=== PATIENT | male | born 1970 | race Caucasian/White ===

== ENCOUNTER 2017-05-07 10:24 | Emergency (ER) | payer OTHER, MEDICAID ==
[~2017-05-07] VITALS: Ht 182.9 cm; Wt 179.2 kg
[2017-05-07 10:35] VITALS: BP_SYST 160
[2017-05-07] MEDS ORDERED: KETOROLAC TROMETHAMINE 60 MG/2 ML VIAL IM ONE (12:15)
[2017-05-07] MEDS ORDERED: LOSARTAN POTASSIUM 50 MG TABLET (COZAAR) PO ONE (13:00)
[2017-05-07] MEDS ORDERED: amLODIPine BESYLATE 5 MG TABLET PO ONE (13:00)
[2017-05-07 13:43] VITALS: BP_SYST 172
== END 2017-05-07 13:43 | disposition home or self-care (01) ==
LOC: SED 10:24
DX: M54.9 Dorsalgia, unspecified (principal); I10 Essential (primary) hypertension; E66.01 Morbid (severe) obesity due to excess calories; Z68.43 Body mass index [BMI] 50.0-59.9, adult
CPT/HCPCS: 72100; 96372; 99284; J1885

== ENCOUNTER 2017-08-16 12:50 | Emergency (ER) | payer OTHER, MEDICAID ==
[~2017-08-16] VITALS: Ht 182.9 cm; Wt 158.8 kg
[2017-08-16 13:09] VITALS: BP_SYST 200
[2017-08-16] MEDS ORDERED: KETOROLAC TROMETHAMINE 60 MG/2 ML VIAL IM ONE (13:30)
[2017-08-16] MEDS ORDERED: cloNIDine HCL 0.1 MG TABLET PO ONE (13:30)
[2017-08-16 13:54] LABS: BASOPHILS # (AUTO) 0.1 K/uL (0.0-0.2); BASOPHILS % (AUTO) 1.2 % (0.0-2.0); EOSINOPHILS # (AUTO) 0.3 K/uL (0.0-0.4); EOSINOPHILS % (AUTO) 3.6 % (0.0-4.0); HEMATOCRIT 43.4 % (36-54); HEMOGLOBIN 14.2 g/dL (14.0-18.0); LYMPHOCYTES % (AUTO) 25.7 % (20.5-51.5); MEAN CORPUSCULAR HEMOGLOBIN 30 pg (27-31); MEAN CORPUSCULAR HGB CONC 33 % (32-36); MEAN CORPUSCULAR VOLUME 91 fL (79.0-98.0); MONOCYTES # (AUTO) 0.4 K/uL (0.0-1.0); MONOCYTES % (AUTO) 5.1 % (1.7-9.3); NEUTROPHILS # (AUTO) 5.1 K/uL (1.8-7.7); NEUTROPHILS % (AUTO) 64.4 % (40.0-70.0); PLATELET COUNT (AUTO) 232 K/uL (130-430); RED BLOOD CELL COUNT(AUTO) 4.78 MIL/uL (4.2-6.2); WHITE BLOOD COUNT (AUTO) 7.9 K/uL (4.8-10.8)
[2017-08-16 14:07] LABS: POTASSIUM 4.2 mmol/L (3.5-5.1)
[2017-08-16 14:11] LABS: ALBUMIN 3.4 g/dL (3.4-4.8); TOTAL BILIRUBIN 0.4 mg/dL (0.0-1.0)
[2017-08-16 14:30] LABS: INR 0.9 (0.80-1.20); PROTHROMBIN TIME 10.3 SECS (9.5-12.5)
[2017-08-16 15:30] VITALS: BP_SYST 155
== END 2017-08-16 15:30 | disposition home or self-care (01) ==
LOC: SED 12:50
DX: M71.22 Synovial cyst of popliteal space [Baker], left knee (principal); M79.662 Pain in left lower leg; I10 Essential (primary) hypertension; E66.01 Morbid (severe) obesity due to excess calories; Z68.42 Body mass index [BMI] 45.0-49.9, adult; Z98.84 Bariatric surgery status
CPT/HCPCS: 36415; 71010; 73564; 80053; 85025; 85379; 85610; 85730; 93005; 93971; 96372; 99285; J1885

== ENCOUNTER 2019-04-14 12:39 | Emergency (ER) | payer OTHER, MEDICAID ==
[~2019-04-14] VITALS: Ht 182.9 cm; Wt 174.2 kg
[2019-04-14 12:47] VITALS: BP_SYST 200
[2019-04-14] MEDS ORDERED: cloNIDine HCL 0.1 MG TABLET PO ONE (13:45)
[2019-04-14] MEDS ORDERED: ENALAPRILAT DIHYDRATE 1.25 MG/ML VIAL IVP ONE (14:45)
[2019-04-14 16:10] VITALS: BP_SYST 166
[2019-04-14] MEDS ORDERED: NORMAL SALINE 5 ML DISP.SYRIN IVF SCH (22:00)
== END 2019-04-14 16:15 | disposition home or self-care (01) ==
LOC: SED 12:39
DX: S80.11XA Contusion of right lower leg, initial encounter (principal); I10 Essential (primary) hypertension; E66.01 Morbid (severe) obesity due to excess calories; Z68.43 Body mass index [BMI] 50.0-59.9, adult; W01.0XXA Fall on same level from slipping, tripping and stumbling without subsequent striking against object, initial encounter; Y93.89 Activity, other specified; Y92.89 Other specified places as the place of occurrence of the external cause; Y99.8 Other external cause status
CPT/HCPCS: 73590-TC; 96372; 99283

== ENCOUNTER 2020-11-13 10:29 | Emergency (ER) | payer OTHER, MEDICAID ==
[~2020-11-13] VITALS: Ht 190.5 cm; Wt 174.6 kg
[2020-11-13 11:25] VITALS: BP_SYST 146
--- NOTE | 2020-11-13 11:27 | NUR ---
PLACED IN TENT
--- NOTE | 2020-11-13 14:05 | NUR ---
DR ENGLISH IN TO ASSESS
--- NOTE | 2020-11-13 14:30 | NUR ---
CALM, ALERT, RESP UNLABORED. SKIN WARM AND DRY. CLEAR MENTATION AND SPEECH. DENIES CP/SOB
[2020-11-13 14:44] VITALS: BP_SYST 136
--- NOTE | 2020-11-13 14:45 | NUR ---
Patient given written and verbal discharge instructions and verbalizes understanding. ER MD discussed with patient the results and treatment provided. Patient in stable condition. ID arm band removed. Rx of NORCO given. Patient educated on pain management and to follow up with PMD. Pain Scale . Opportunity for questions provided and answered. Medication side effect fact sheet provided.
== END 2020-11-13 14:44 | disposition home or self-care (01) ==
LOC: SED 10:47
DX: M54.41 Lumbago with sciatica, right side (principal); I10 Essential (primary) hypertension; E66.01 Morbid (severe) obesity due to excess calories
CPT/HCPCS: 99283

== ENCOUNTER 2022-11-04 18:29 | Emergency (ER) | payer OTHER, MEDICAID ==
[~2022-11-04] VITALS: Ht 182.9 cm; Wt 210.9 kg
[2022-11-04 18:58] VITALS: BP_SYST 274
--- NOTE | 2022-11-04 19:01 | NUR ---
UNABLE TO GET BP AFTER MULTIPLE TIMES, DIFFERENT ARMS. DR HOUSE INFORMED.
--- NOTE | 2022-11-04 19:30 | NUR ---
RECEIVED REPORT FROM BURT MEYER
--- NOTE | 2022-11-04 19:54 | NUR ---
JAYDEN HOUSE EXAMINING PT AT BEDSIDE
[2022-11-04] MEDS ORDERED: LORazepam 2 MG/ML VIAL IVP ONE (20:00)
[2022-11-04] MEDS ORDERED: LABETALOL HCL 20 MG/4 ML CARTRIDGE IVP ONE (20:00)
--- NOTE | 2022-11-04 20:30 | NUR ---
# 22 gauge angiocath placed to L AC. Use of asceptic technique. Opsite placed over site. Blood return noted. Blood for lab drawn from site. Flushed with 10 cc of normal saline. No evidence of infiltration noted. Patient tolerated well.
[2022-11-04] MEDS ORDERED: MORPHINE 4 MG INJ. 4 MG/ML VIAL ONE (20:49)
[2022-11-04 20:51] LABS: BASOPHILS # (AUTO) 0.1 K/uL (0.0-0.2); BASOPHILS % (AUTO) 0.9 % (0.0-2.0); EOSINOPHILS # (AUTO) 0.1 K/uL (0.0-0.4); EOSINOPHILS % (AUTO) 1.2 % (0.0-4.0); HEMATOCRIT 43.6 % (36-54); HEMOGLOBIN 14.8 g/dL (14.0-18.0); LYMPHOCYTES # (AUTO) 0.9 K/uL (1.0-5.5); LYMPHOCYTES % (AUTO) 10.7 % (20.5-51.5); MEAN CORPUSCULAR HEMOGLOBIN 31 pg (27-31); MEAN CORPUSCULAR HGB CONC 34 % (32-36); MEAN CORPUSCULAR VOLUME 91 fL (79.0-98.0); MONOCYTES # (AUTO) 0.7 K/uL (0.0-1.0); NEUTROPHILS # (AUTO) 6.7 K/uL (1.8-7.7); NEUTROPHILS % (AUTO) 79.2 % (40.0-70.0); PLATELET COUNT (AUTO) 229 K/uL (130-430); RED BLOOD CELL COUNT(AUTO) 4.78 MIL/uL (4.2-6.2); RED CELL DISTRIBUTION WIDTH 14.5 % (9.0-15.0); WHITE BLOOD COUNT (AUTO) 8.5 K/uL (4.8-10.8)
[2022-11-04] MEDS ORDERED: NITROGLYCERIN 1 INCH (GM) OINT. ONE (20:51)
[2022-11-04 21:06] LABS: ANION GAP 9 (5-15); CALCIUM 8.6 mg/dL (8.4-11.0); CHLORIDE 105 mmol/L (98-107); CREATININE 1.25 mg/dL (0.55-1.30); GLUCOSE 186 mg/dL (70-99); UREA NITROGEN, BLOOD 16 mg/dL (8-21)
[2022-11-04 21:12] LABS: ALANINE AMINOTRANSFERASE 179 U/L (12-78); ALBUMIN 3.3 g/dL (3.4-4.8); ASPARTATE AMINOTRANSFERASE 343 U/L (10-37); TOTAL BILIRUBIN 1.6 mg/dL (0.0-1.0)
[2022-11-04 21:14] LABS: GFR AFRICAN AMERICAN 78 mL/min (>90)
--- NOTE | 2022-11-04 23:14 | NUR ---
Patient taken to CT via gurney accompanied by radiology.
[2022-11-04] MEDS ORDERED: MORPHINE 4 MG INJ. 4 MG/ML VIAL IVP ONE ×2 (23:30→23:45)
[2022-11-04] MEDS ORDERED: NITROGLYCERIN 1 INCH (GM) OINT. TP ONE (23:30)
--- NOTE | 2022-11-04 23:33 | NUR ---
Patient back from CT via gurney accompanied by radiology
[2022-11-05] MEDS ORDERED: LIDOCAINE 1%, 20 ML MDV 20 ML ONE (01:13)
--- NOTE | 2022-11-05 01:15 | NUR ---
I&D Procedure done by Dr HOUSE using sterile technique. Lidocaine 1% used. Wound packed with IODOFORM. Adaptic, 4x4 and amish to wound. amt of bleeding noted. Wound care discussed w/ patient. Pt tolerated procedure well.
[2022-11-05] MEDS ORDERED: CEPH-548 PO (01:42)
[2022-11-05 01:45] VITALS: BP_SYST 172
--- NOTE | 2022-11-05 01:45 | NUR ---
Patient given written and verbal discharge instructions and verbalizes understanding. ER MD discussed with patient the results and treatment provided. Patient in stable condition. ID arm band removed. IV catheter removed intact and dressing applied, no active bleeding. Rx of CEPHALEXIN given. Patient educated on pain management and to follow up with PMD. Pain Scale 0/10. Opportunity for questions provided and answered. Medication side effect fact sheet provided.
== END 2022-11-05 01:45 | disposition home or self-care (01) ==
LOC: SED 18:29
DX: L02.213 Cutaneous abscess of chest wall (principal); R10.84 Generalized abdominal pain; B34.9 Viral infection, unspecified; F41.9 Anxiety disorder, unspecified; I10 Essential (primary) hypertension; Z79.899 Other long term (current) drug therapy
CPT/HCPCS: 99285; 74176; 96374; 10060; 71045; 96375; 80053; 83880; 83690; 85025; 85379; 84484; 36415; 76376; 96376; 93005; 90471; J2060; J2270; J2001

== ENCOUNTER 2022-11-09 06:00 | Inpatient (IN) | payer OTHER, MEDICAID ==
[~2022-11-09] VITALS: Ht 182.9 cm; Wt 221.8 kg
[~2022-11-09 06:00] MED LIST: CEPH-548 PO
[2022-11-09 06:10] VITALS: BP_SYST 186
[2022-11-09] MEDS ORDERED: KETOROLAC TROMETHAMINE 30 MG VIAL IVP ONE (06:45)
[2022-11-09] MEDS ORDERED: ONDANSETRON HCL 4 MG/2 ML VIAL IVP ONE (06:45)
[2022-11-09 06:53] LABS: BASOPHILS # (AUTO) 0.1 K/uL (0.0-0.2); EOSINOPHILS # (AUTO) 0.4 K/uL (0.0-0.4); EOSINOPHILS % (AUTO) 6.3 % (0.0-4.0); HEMATOCRIT 42.9 % (36-54); HEMOGLOBIN 14.6 g/dL (14.0-18.0); MEAN CORPUSCULAR HEMOGLOBIN 31 pg (27-31); MEAN CORPUSCULAR HGB CONC 34 % (32-36); MEAN CORPUSCULAR VOLUME 92 fL (79.0-98.0); MONOCYTES # (AUTO) 0.5 K/uL (0.0-1.0); MONOCYTES % (AUTO) 8.1 % (1.7-9.3); NEUTROPHILS # (AUTO) 3.8 K/uL (1.8-7.7); NEUTROPHILS % (AUTO) 66.6 % (40.0-70.0); PLATELET COUNT (AUTO) 207 K/uL (130-430); RED BLOOD CELL COUNT(AUTO) 4.66 MIL/uL (4.2-6.2); RED CELL DISTRIBUTION WIDTH 15.4 % (9.0-15.0); WHITE BLOOD COUNT (AUTO) 5.7 K/uL (4.8-10.8)
[2022-11-09 06:54] LABS: CALCIUM 9.4 mg/dL (8.4-11.0); CREATININE 1.5 mg/dL (0.55-1.30)
[2022-11-09 07:00] LABS: ALBUMIN 3.2 g/dL (3.4-4.8); TOTAL BILIRUBIN 6.2 mg/dL (0.0-1.0)
[2022-11-09 07:04] LABS: PROTHROMBIN TIME 10.2 SECS (9.5-12.5)
[2022-11-09 08:21] LABS: BILIRUBIN,URINE 3+ (NEGATIVE); BLOOD, URINE NEGATIVE (NEGATIVE); GLUCOSE,URINE NEGATIVE (NEGATIVE); KETONES,URINE TRACE (NEGATIVE); LEUKOCYTE ESTERASE ,URINE NEGATIVE (NEGATIVE); NITRITE, URINE NEGATIVE (NEGATIVE); PROTEIN URINE 1+ (NEGATIVE); UROBILINOGEN,URINE 0.2 (0.2-1.0)
[2022-11-09 08:32] LABS: CLARITY/URINE SLIGHTLY HAZY (CLEAR); COLOR,URINE AMBER (YELLOW)
[2022-11-09 08:36] LABS: BACTERIA,URINE FEW /HPF (None Seen); RBC,URINE 0-3 /HPF (0-3); WBC,URINE 0-3 /HPF (0-3)
[2022-11-09 08:37] LABS: OTHER CASTS, URINE MIXED CELL CASTS 1+ /LPF (None Seen)
[2022-11-09] MEDS ORDERED: ONDA-8 TL (08:56)
[2022-11-09] MEDS ORDERED: TRAM50TA2 PO (08:56)
[2022-11-09] MEDS ORDERED: PRO40 PO (09:29)
[2022-11-09] MEDS ORDERED: CLON0.2T PO (09:29)
[2022-11-09] MEDS ORDERED: HYG25 PO (09:29)
[2022-11-09] MEDS ORDERED: HYDR-4038 PO (09:29)
[2022-11-09] MEDS ORDERED: NOR10 PO (09:29)
[2022-11-09] MEDS ORDERED: CHOLECALCIFEROL (09:29)
[2022-11-09] MEDS ORDERED: LIP40 PO (09:30)
[2022-11-09] MEDS ORDERED: traMADol HCL HCL 50 MG TABLET (ULTRAM) PO PRN (11:00)
[2022-11-09] MEDS ORDERED: ONDANSETRON 4 MG ODT TAB TL PRN (11:00)
[2022-11-09] MEDS: D5/0.45 NS 1,000 ML IV SCH (12:16)
[2022-11-09] MEDS: cephALEXin 500 MG CAPSULE PO SCH ×3 (12:17→20:18)
[2022-11-09 13:45] VITALS: BP_SYST 177
[2022-11-09] MEDS ORDERED: cloNIDine HCL 0.2 MG TABLET PO ONE (14:00)
[2022-11-09] MEDS: hydrALAZINE HCL 25 MG TABLET PO SCH ×2 (16:01→21:22)
[2022-11-09 16:04] VITALS: BP_SYST 181
[2022-11-09 17:54] VITALS: BP_SYST 181
[2022-11-09 19:53] VITALS: BP_SYST 162
[2022-11-09] MEDS: ATORVASTATIN 20 MG TABLET PO SCH (20:18)
[2022-11-09] MEDS: cloNIDine HCL 0.2 MG TABLET PO SCH (20:18)
[2022-11-10] VITALS: BP_SYST 143
[2022-11-10] MEDS: hydrALAZINE HCL 25 MG TABLET PO SCH ×3 (06:11→21:36)
[2022-11-10] MEDS: D5/0.45 NS 1,000 ML IV SCH ×3 (06:11→17:56)
[2022-11-10 07:00] LABS: BASOPHILS # (AUTO) 0.1 K/uL (0.0-0.2); BASOPHILS % (AUTO) 1.2 % (0.0-2.0); EOSINOPHILS # (AUTO) 0.3 K/uL (0.0-0.4); EOSINOPHILS % (AUTO) 5.8 % (0.0-4.0); HEMATOCRIT 41.5 % (36-54); LYMPHOCYTES % (AUTO) 19.6 % (20.5-51.5); MEAN CORPUSCULAR HEMOGLOBIN 31 pg (27-31); MEAN CORPUSCULAR HGB CONC 34 % (32-36); MEAN CORPUSCULAR VOLUME 92 fL (79.0-98.0); MONOCYTES # (AUTO) 0.5 K/uL (0.0-1.0); MONOCYTES % (AUTO) 8.8 % (1.7-9.3); NEUTROPHILS # (AUTO) 3.4 K/uL (1.8-7.7); NEUTROPHILS % (AUTO) 64.6 % (40.0-70.0); PLATELET COUNT (AUTO) 189 K/uL (130-430); RED BLOOD CELL COUNT(AUTO) 4.53 MIL/uL (4.2-6.2); RED CELL DISTRIBUTION WIDTH 15.2 % (9.0-15.0); WHITE BLOOD COUNT (AUTO) 5.2 K/uL (4.8-10.8)
[2022-11-10 07:33] LABS: ALBUMIN 2.9 g/dL (3.4-4.8); CALCIUM 8.8 mg/dL (8.4-11.0); CREATININE 1.33 mg/dL (0.55-1.30); TOTAL BILIRUBIN 6.1 mg/dL (0.0-1.0)
[2022-11-10 08:06] LABS: HEPATITIS A AB, IgM Negative (Negative); HEPATITIS B CORE AB, IgM Negative (Negative); HEPATITIS B SURFACE AG Negative (Negative)
[2022-11-10 09:32] VITALS: BP_SYST 157
[2022-11-10] MEDS: cephALEXin 500 MG CAPSULE PO SCH ×4 (09:35→21:35)
[2022-11-10] MEDS: cloNIDine HCL 0.2 MG TABLET PO SCH ×2 (09:36→21:35)
[2022-11-10] MEDS: PANTOPRAZOLE SODIUM 40 MG TAB PO SCH (09:36)
[2022-11-10] MEDS: amLODIPine BESYLATE 10 MG TABLET PO SCH (09:36)
[2022-11-10 09:56] VITALS: BP_SYST 107
[2022-11-10] MEDS: CHLORTHALIDONE 25 MG TABLET (HYGROTON) PO SCH (10:31)
[2022-11-10] MEDS ORDERED: POTASSIUM CHLORIDE 20 MEQ TAB.PRT.SR PO ONE (11:00)
[2022-11-10 11:07] LABS: ACETAMINOPHEN < 1 ug/mL (1-30)
[2022-11-10 11:16] LABS: TOTAL IRON BIND. CAPACITY 359 ug/dL (250-450)
[2022-11-10 11:58] VITALS: BP_SYST 143
[2022-11-10 16:30] VITALS: BP_SYST 141
[2022-11-10 20:00] VITALS: BP_SYST 147
[2022-11-10] MEDS: ATORVASTATIN 20 MG TABLET PO SCH (21:35)
[2022-11-11] VITALS: BP_SYST 149
[2022-11-11] MEDS: D5/0.45 NS 1,000 ML IV SCH (01:01)
[2022-11-11] MEDS: hydrALAZINE HCL 25 MG TABLET PO SCH (06:35)
[2022-11-11 07:52] VITALS: BP_SYST 145
[2022-11-11] MEDS: cephALEXin 500 MG CAPSULE PO SCH ×2 (08:32→12:10)
[2022-11-11] MEDS: PANTOPRAZOLE SODIUM 40 MG TAB PO SCH (08:32)
[2022-11-11] MEDS: amLODIPine BESYLATE 10 MG TABLET PO SCH (08:33)
[2022-11-11] MEDS: cloNIDine HCL 0.2 MG TABLET PO SCH (08:33)
[2022-11-11] MEDS: CHLORTHALIDONE 25 MG TABLET (HYGROTON) PO SCH (08:33)
[2022-11-11 08:50] LABS: EOSINOPHILS # (AUTO) 0.2 K/uL (0.0-0.4); EOSINOPHILS % (AUTO) 4.6 % (0.0-4.0); HEMATOCRIT 43.6 % (36-54); HEMOGLOBIN 14.6 g/dL (14.0-18.0); LYMPHOCYTES % (AUTO) 18.4 % (20.5-51.5); MEAN CORPUSCULAR HEMOGLOBIN 31 pg (27-31); MEAN CORPUSCULAR HGB CONC 34 % (32-36); MEAN CORPUSCULAR VOLUME 92 fL (79.0-98.0); MONOCYTES # (AUTO) 0.5 K/uL (0.0-1.0); MONOCYTES % (AUTO) 9.2 % (1.7-9.3); PLATELET COUNT (AUTO) 182 K/uL (130-430); RED BLOOD CELL COUNT(AUTO) 4.73 MIL/uL (4.2-6.2); RED CELL DISTRIBUTION WIDTH 15.4 % (9.0-15.0); WHITE BLOOD COUNT (AUTO) 5.3 K/uL (4.8-10.8)
[2022-11-11 09:12] LABS: ALBUMIN 3.1 g/dL (3.4-4.8); BILIRUBIN,DIRECT 6.5 mg/dL (0.0-0.3); CALCIUM 8.9 mg/dL (8.4-11.0); CREATININE 1.3 mg/dL (0.55-1.30)
[2022-11-11 09:27] LABS: BASOPHILS % (AUTO) 0.3 % (0.0-2.0); NEUTROPHILS # (AUTO) 3.6 K/uL (1.8-7.7); NEUTROPHILS % (AUTO) 67.5 % (40.0-70.0)
[2022-11-11 09:30] LABS: PROTHROMBIN TIME 10.1 SECS (9.5-12.5)
[2022-11-11 11:56] VITALS: BP_SYST 148
[2022-11-11 11:57] VITALS: BP_SYST 170
[2022-11-11 12:10] VITALS: BP_SYST 148
[2022-11-11] MEDS ORDERED: NORMAL SALINE 5 ML DISP.SYRIN IVF SCH (14:00)
[2022-11-29 11:36] LABS: FERRITIN 142
[2022-11-29 11:37] LABS: ALPHA-1-ANTITRYPSIN, S 145; ANTI NUCLEAR AB WITH REFLEX NEGATIVE (NEGATIVE); ANTI-SMOOTH MUSCLE AB 6 (0-19)
== END 2022-11-11 13:55 | disposition home or self-care (01) | DRG 441 ==
LOC: SED 06:00 → SMU 09:39
PROVIDERS: ADMIT Preventive Medicine Preventive Medicine/Occupational Environmental Medicine; ATTEND Preventive Medicine Preventive Medicine/Occupational Environmental Medicine
PROC: 5A09357 Assistance with Respiratory Ventilation, Less than 24 Consecutive Hours, Continuous Positive Airway Pressure (ICD-10-PCS; principal; 2022-11-09)
PROC: 5A09357 Assistance with Respiratory Ventilation, Less than 24 Consecutive Hours, Continuous Positive Airway Pressure (ICD-10-PCS; 2022-11-11)
DX: B17.9 Acute viral hepatitis, unspecified (principal); N17.0 Acute kidney failure with tubular necrosis; Z68.44 Body mass index [BMI] 60.0-69.9, adult; E66.01 Morbid (severe) obesity due to excess calories; E78.5 Hyperlipidemia, unspecified; K21.9 Gastro-esophageal reflux disease without esophagitis; K76.0 Fatty (change of) liver, not elsewhere classified; E55.9 Vitamin D deficiency, unspecified; R73.9 Hyperglycemia, unspecified; E88.09 Other disorders of plasma-protein metabolism, not elsewhere classified; R74.01 Elevation of levels of liver transaminase levels; Z20.822 Contact with and (suspected) exposure to COVID-19; E87.6 Hypokalemia; I10 Essential (primary) hypertension; Z98.84 Bariatric surgery status
CPT/HCPCS: 36415; 76700-TC; 80053; 80074; 81000; 82103; 82248; 82390; 82728; 83516; 83540; 83550; 83690; 83880; 84484; 85025; 85610-TC; 85730-TC; 86038; 86376; 93005; 93306; 93970; 94660; 94760; 99285; G0480; G0481; J1885; J2405

== ENCOUNTER 2022-11-21 12:58 | Emergency (ER) | payer OTHER, MEDICAID ==
[~2022-11-21] VITALS: Ht 182.9 cm; Wt 122.5 kg
[~2022-11-21 12:58] MED LIST changes: +CHOLECALCIFEROL; +CLON0.2T PO; +HYDR-4038 PO; +HYG25 PO; +LIP40 PO; +NOR10 PO; +ONDA-8 TL; +PRO40 PO; +TRAM50TA2 PO
[2022-11-21 13:34] VITALS: BP_SYST 121
--- NOTE | 2022-11-21 13:43 | NUR ---
Patient triaged and placed in waiting room. VSS and patient appears in no acute distress at this time. Accompanied by , awaiting available bed, and MD notified of need for MSE.
--- NOTE | 2022-11-21 14:25 | NUR ---
ER DR. FLORES EXAMINING PT IN TRIAGE
[2022-11-21 14:49] LABS: MEAN CORPUSCULAR VOLUME 91 fL (79.0-98.0)
[2022-11-21 14:55] LABS: HEMATOCRIT 39.6 % (36-54); HEMOGLOBIN 13.5 g/dL (14.0-18.0); MEAN CORPUSCULAR HEMOGLOBIN 31 pg (27-31); MEAN CORPUSCULAR HGB CONC 34 % (32-36); PLATELET COUNT (AUTO) 262 K/uL (130-430); RED BLOOD CELL COUNT(AUTO) 4.37 MIL/uL (4.2-6.2); RED CELL DISTRIBUTION WIDTH 17.2 % (9.0-15.0); WHITE BLOOD COUNT (AUTO) 7.9 K/uL (4.8-10.8)
[2022-11-21 15:02] LABS: CALCIUM 9.8 mg/dL (8.4-11.0); CREATININE 1.23 mg/dL (0.55-1.30)
[2022-11-21 15:15] LABS: TOTAL BILIRUBIN 22.2 mg/dL (0.0-1.0)
[2022-11-21 15:16] LABS: ALBUMIN 2.8 g/dL (3.4-4.8)
[2022-11-21 15:19] LABS: BAND % (MANUAL) 1 % (0-6); BASOPHILS % (MANUAL) 0 % (0-2); EOSINOPHILS % (MANUAL) 4 % (0-7); LYMPHOCYTES % (MANUAL) 14 % (20-46); METAMYELOCYTES % 1 % (0-0); MONOCYTES % (MANUAL) 2 % (0-11)
[2022-11-21] MEDS ORDERED: GUAI5SYR PO (16:46)
[2022-11-21] MEDS ORDERED: DIPH25CA83 PO (16:46)
[2022-11-21 17:03] VITALS: BP_SYST 121
--- NOTE | 2022-11-21 17:03 | NUR ---
Patient given written and verbal discharge instructions and verbalizes understanding. ER MD discussed with patient the results and treatment provided. Patient in stable condition. ID arm band removed. Rx of BENADRYL AND ROBITUSSIN DM SUGAR FREE given. Patient educated on pain management and to follow up with PMD. Pain Scale 0/10. Opportunity for questions provided and answered. Medication side effect fact sheet provided.
== END 2022-11-21 17:03 | disposition home or self-care (01) ==
LOC: SED 12:58
DX: K75.89 Other specified inflammatory liver diseases (principal); I10 Essential (primary) hypertension; Z79.899 Other long term (current) drug therapy
CPT/HCPCS: 36415; 80053; 85007; 85027; 99282

== ENCOUNTER 2024-02-08 18:10 | Emergency (ER) | payer OTHER, MEDICAID ==
[~2024-02-08] VITALS: Ht 182.9 cm; Wt 213.2 kg
[~2024-02-08 18:10] MED LIST changes: +DIPH25CA83 PO; +GUAI5SYR PO; +OXYIR5 PO; +POLY119P2 PO
[2024-02-08 18:29] VITALS: BP_SYST 129; PULSE 94; RESP 24; TEMP 98.3; O2SAT 96
[2024-02-08 19:11] LABS: BASOPHILS # (AUTO) 0.1 K/uL (0.0-0.2); BASOPHILS % (AUTO) 0.8 % (0.0-2.0); EOSINOPHILS # (AUTO) 0.3 K/uL (0.0-0.4); EOSINOPHILS % (AUTO) 3.2 % (0.0-4.0); HEMATOCRIT 43.4 % (36-54); HEMOGLOBIN 14.7 g/dL (14.0-18.0); LYMPHOCYTES # (AUTO) 1.8 K/uL (1.0-5.5); LYMPHOCYTES % (AUTO) 18.6 % (20.5-51.5); MEAN CORPUSCULAR HEMOGLOBIN 31 pg (27-31); MEAN CORPUSCULAR HGB CONC 34 % (32-36); MEAN CORPUSCULAR VOLUME 90 fL (79.0-98.0); MONOCYTES # (AUTO) 0.6 K/uL (0.0-1.0); MONOCYTES % (AUTO) 6.4 % (1.7-9.3); NEUTROPHILS # (AUTO) 6.8 K/uL (1.8-7.7); PLATELET COUNT (AUTO) 252 K/uL (130-430); RED CELL DISTRIBUTION WIDTH 14.3 % (9.0-15.0); WHITE BLOOD COUNT (AUTO) 9.6 K/uL (4.8-10.8)
[2024-02-08 19:14] LABS: ALBUMIN 2.9 g/dL (3.4-4.8); BILIRUBIN,DIRECT 0.1 mg/dL (0.0-0.3); CALCIUM 8.3 mg/dL (8.4-11.0); CREATININE 1.48 mg/dL (0.55-1.30); POTASSIUM 4.5 mmol/L (3.5-5.1); TOTAL BILIRUBIN 0.4 mg/dL (0.0-1.0); TOTAL PROTEIN, SERUM 7.3 g/dL (6.4-8.3)
[2024-02-09 02:16] VITALS: BP_SYST 144; PULSE 74; RESP 18; TEMP 98.8; O2SAT 93
== END 2024-02-09 02:16 | disposition home or self-care (01) ==
LOC: SED 18:10
DX: R07.89 Other chest pain (principal); I10 Essential (primary) hypertension; Z79.899 Other long term (current) drug therapy
CPT/HCPCS: 36415; 71250-TC; 80048; 80076; 83690; 83880; 84484; 85025; 93005; 99284